=== PATIENT | male | born 1985 | race Caucasian/White ===

== ENCOUNTER 2025-03-15 14:19 | Emergency (ER) | payer MEDICAID, SELFPAY ==
--- NOTE | 2025-03-15 14:20 | W.ED.ABDPA2 ---
HPI - Abdominal Pain General: Chief Complaint: Abdominal Pain Stated Complaint: AB PAIN History of Present Illness: 39-year-old male presents emergency room via EMS with sudden onset of sharp right flank pain radiating down to the groin that comes and goes in waves it is constant but has waves of even more sharp severe pain. No previous abdominal surgeries no known history of nephrolithiasis. He had otherwise been fine up till the point it began 45 minutes ago he has been very nauseous no vomiting no fevers sweats or chills with this no diarrhea. Associated Symptoms: Denies chills, dysuria and fever(s) Related Data Home Medications ?Medication ?Instructions ?Recorded ?Confirmed ibuprofen 800 mg tablet 800 mg PO TID 03/15/25 03/15/25 propranolol 40 mg tablet 40 mg PO DAILY 03/15/25 03/15/25 tizanidine 4 mg tablet 4 mg PO Q8H 03/15/25 03/15/25 Previous Rx's ?Medication ?Instructions ?Recorded hydrocodone 5 mg-acetaminophen 325 1 tab PO Q6H PRN pain #20 tabs 03/15/25 mg tablet promethazine 25 mg tablet 25 mg PO Q6H PRN nausea and 03/15/25 vomiting #20 tabs tamsulosin 0.4 mg capsule 0.4 mg PO DAILY #10 caps 03/15/25 Allergies Allergy/AdvReac Type Severity Reaction Status Date / Time No Known Allergies Allergy Unverified 09/15/19 10:07 Review of Systems Const: Denies: fever(s) or chills Card: Denies: chest pain Resp: Denies: dyspnea GI: Denies: abdominal pain : Reports: flank pain; Denies: dysuria, urinary frequency or urinary urgency Musc: Denies: neck pain or back pain Skin/Breast: Denies: rash Physical Exam Const: GENERAL APPEARANCE: cooperative ORIENTATION/CONSCIOUSNESS: Yes awake, Yes oriented to person, Yes oriented to place and Yes oriented to time HENMT: COMMON NORMALS: normocephalic, atraumatic and hearing grossly normal bilaterally HEAD & SCALP: normocephalic and atraumatic Resp: COMMON NORMALS: normal respiratory effort, No retractions, No use of accessory muscles and clear to auscultation bilaterally AUSCULTATION: clear to auscultation bilaterally Cardio: COMMON NORMALS: regular rate, regular rhythm and No murmurs present (Cardio) RATE: regular rate RHYTHM: regular rhythm GI: COMMON NORMALS: Soft to palpation and No hepatosplenomegaly present AUSCULTATION: Yes normoactive bowel sounds PALPATION: Yes Soft to palpation, No Tenderness to palpation present (GI), No Guarding due to palpation present (GI) and Yes No hepatosplenomegaly present : OTHER: Right CVA pain Extremity: COMMON NORMALS: normal to inspection, capillary refill normal, no clubbing, cyanosis or edema, no calf tenderness and no pedal edema Neuro: SENSORIUM/ORIENTATION: Yes oriented to person, Yes oriented to place and Yes oriented to time Skin: COMMON NORMALS: no rashes or lesions noted GENERAL SKIN EXAM: no rashes or lesions noted Course Vital Signs: Vital signs: Vital Signs Temperature 98.6 F 03/15/25 14:22 Pulse Rate 76 03/15/25 17:10 Respiratory Rate 22 H 03/15/25 15:39 Blood Pressure 169/103 03/15/25 17:10 Pulse Oximetry 96 03/15/25 17:10 Oxygen Delivery Me thod Room Air 03/15/25 14:22 MDM - Abdominal Pain Medical Decision Making 2 mm nonobstructing stone at the right UVJ. Pain well-controlled at this time will discharge patient home with hydrocodone Flomax and promethazine. Follow-up with urology strain urine for stone. Medical Records I reviewed the patient's medical records. Lab Data I reviewed the patient's lab results. 03/15/25 14:31 03/15/25 14:31 Labs/Radiology: Radiology Impressions Abdomen/Pelvis CT 03/15/25 14:31 IMPRESSION: 1. A 2 mm obstructing stone at the right ureterovesical junction with mild right hydroureter. No hydronephrosis. 2. Hepatic steatosis. COMMENTS: Consistent with the [employer]'s Incidental Findings Committee white paper (J Am Louis Radiol 2018): Any incidental renal lesion less than 1 cm or classified as too small to characterize, or any incidental cystic renal lesion characterized as simple-appearing, is likely benign. No follow-up imaging is recommended for these lesions per consensus recommendations based on imaging criteria. Laboratory Results WBC 10.43 10^3/uL (3.29-11.43) 03/15/25 14:31 RBC 5.10 10^6/uL (3.85-5.65) 03/15/25 14:31 Hgb 15.60 g/dL (11.27-16.99) 03/15/25 14:31 Hct 44.0 % (37-53) 03/15/25 14: MCV 86.3 fl (82-101) 03/15/25 14:31 MCH 30.6 pg (27-33) 03/15/25 14: MCHC 35.5 g/dL (30-55) 03/15/25 14:31 RDW 13.2 % (12.1-15.1) 03/15/25 14:31 Plt Count 346 10^3/cmm (157-399) 03/15/25 14: MPV 9.6 fL (7.4-10.4) 03/15/25 14:31 Neut % (Auto) 64.5 % 03/15/25 14: Lymph % (Auto) 24.6 % 03/15/25 14: Mckean % (Auto) 8.5 % 03/15/25 14: Eos % (Auto) 1.3 % 03/15/25 14:31 Baso % (Auto) 0.2 % 03/15/25 14: Neut # (Auto) 6.72 10^3/uL (1.8-7.7) 03/15/25 14: Lymph # (Auto) 2.6 10^3/uL (0.8-4.8) 03/15/25 14:31 Mckean # (Auto) 0.9 10^3/uL (0.2-0.9) 03/15/25 14: Eos # (Auto) 0.1 10^3/uL (0.0-0.8) 03/15/25 14: Baso # (Auto) 0.0 10^3/uL (0.0-0.1) 03/15/25 14: Nucleated RBC % (auto) 0 % 03/15/25 14: Nucleated RBCs # 0.0 /100WBC 03/15/25 14:31 Sodium 137 mmol/L (136-145) 03/15/25 14:31 Potassium 4.3 mmol/L (3.5-5.1) 03/15/25 14: Chloride 103 mmol/L (98-107) 03/15/25 14:31 Carbon Dioxide 21 mmol/L (22-29) L 03/15/25 14:31 Anion Gap 17.3 (5-19) 03/15/25 14:31 BUN 12 mg/dL (6-20) 03/15/25 14:31 Creatinine 1.1 mg/dL (0.7-1.2) 03/15/25 14:31 GFR Calculation 74.9 mL/min (90-130) L 03/15/25 14:31 Glucose 110 mg/dL (65-115) 03/15/25 14:31 Calculated Osmolality 284 mOsm/kg (285-295) L 03/15/25 14:31 Calcium 9.5 mg/dL (8.5-10.5) 03/15/25 14: Total Bilirubin 0.5 mg/dL (0.15-1.2) 03/15/25 14:31 AST 16 U/L (0-40) 03/15/25 14:31 ALT 30 U/L (0-41) 03/15/25 14:31 Alkaline Phosphatase 126 U/L (40-130) 03/15/25 14:31 Total Protein 7.6 g/dL (6.6-8.7) 03/15/25 14:31 Albumin 4.3 g/dL (3.5-5.2) 03/15/25 14:31 Globulin 3.3 g/dL (1.3-4.6) 03/15/25 14:31 Lipase 41 U/L (13-60) 03/15/25 14:31 Urine Color Yellow (Yellow) 03/15/25 16:05 Urine Appearance Clear (CLEAR) 03/15/25 16:05 Urine pH 6.5 (5-7) 03/15/25 16:05 Ur Specific [place] 1.036 (1.005-1.030) H 03/15/25 16:05 Urine Protein 1+ (Negative) A 03/15/25 16:05 Urine Glucose (UA) Negative (Normal) 03/15/25 16:05 Urine Ketones Trace (Negative) 03/15/25 16:05 Urine Blood 1+ (Negative) A 03/15/25 16:05 Urine Nitrate Negative (Negative) 03/15/25 16:05 Urine Bilirubin Negative (Negative) 03/15/25 16:05 Urine Urobilinogen 1.0 mg/dL (Negative) 03/15/25 16:05 Ur Leukocyte Esterase Negative (Negative) 03/15/25 16:05 Urine RBC 21-50 /hpf (0-2) H 03/15/25 16:05 Urine WBC 0-5 /hpf (0-5) 03/15/25 16:05 Ur Squamous Epith Cells 0-5 /hpf (0-5) 03/15/25 16:05 Amorphous Sediment Not Reportable 03/15/25 16:05 Urine Bacteria None seen /hpf (NONE) 03/15/25 16:05 Hyaline Casts 0.40 /lpf 03/15/25 16:05 All radiology interpretation(s) finalized by discharge Discharge Plan Discharge Patient Disposition: Home Clinical Impression: Calculus of kidney Condition: Stable Prescriptions: New hydrocodone-acetaminophen 5-325 mg tablet 1 tab PO Q6H PRN (Reason: pain) Qty: 20 0RF promethazine 25 mg tablet 25 mg PO Q6H PRN (Reason: nausea and vomiting) Qty: 20 0RF tamsulosin 0.4 mg capsule 0.4 mg PO DAILY Qty: 10 0RF No Action ibuprofen 800 mg tablet 800 mg PO TID tizanidine 4 mg tablet 4 mg PO Q8H propranolol 40 mg tablet 40 mg PO DAILY Discharge Orders: Discharge ED (Routine); Ordered 03/15/25 Ordered By: Uche Yao Patient Instructions: Kidney Stones (ED), How to Strain Your Urine (ED), Opioid Safety, Pain Management, Patient Portal & Tariq Instructions Activity Restrictions/Additional Instructions: Thank you for choosing [facility] for your healthcare needs today. It is very important that you follow up as instructed or that you return to the Emergency Department should you have concerns or if your condition changes or worsens in any way. Emergency department visits are focused on emergent conditions, in some cases you may require further evaluation on an outpatient basis. You were seen in the emergency room for right-sided flank pain. On examination your white count is normal there is significant amount of blood in your urine CT shows a kidney stone. These will usually pass spontaneously. We did give you pain medications nausea medications and medication to help the stone pass sooner. You should strain your urine to collect a stone. Case management will make arrangements for you to follow-up with the urologist. If your pain is uncontrolled return to the emergency room (Please note that included in your discharge packet is information concerning opioid safety and pain management. This information is given to all patients were discharged from the ER regardless of their discharge diagnosis or the medicines they usually take or are prescribed.) Print Language: Vietnamese Coding Level of Care Code ED Architectural Engineering Teacher for Chikis Byrne
[2025-03-15 14:22] VITALS: BP 117/110; PULSE 75; RESP 16; TEMP 37; O2SAT 96; BMI 49.9
--- NOTE | 2025-03-15 14:31 | CTR_ITS ---
PROCEDURE INFORMATION: Exam: CT Abdomen And Pelvis Without Contrast Exam date and time: 03/15/2025 2:46 PM Age: 39 years old Clinical indication: Abdominal pain; Flank; Right; Additional info: Flank pain TECHNIQUE: Imaging protocol: Computed tomography of the abdomen and pelvis without contrast. Radiation optimization: All CT scans at this facility use at least one of these dose optimization techniques: automated exposure control; mA and/or kV adjustment per patient size (includes targeted exams where dose is matched to clinical indication); or iterative reconstruction. COMPARISON: No relevant prior studies available. RADIATION DOSE METRICS: Total DLP (mGy-cm): 1344.233 FINDINGS: Limitations: Evaluation of solid organs, viscera, and vasculature is limited without intravenous contrast. Lungs: Lung bases are clear. Liver: Diffusely hypoattenuating liver, compatible with steatosis. No focal lesion detected. Gallbladder and biliary ducts: No radiodense gallstones. No biliary ductal dilation. Pancreas: Normal. Spleen: Several scattered punctate benign calcified granulomas. Adrenal glands: Normal. Kidneys and ureters: No hydronephrosis. A right renal simple cyst. A 2 mm obstructing stone at the right ureterovesical junction with mild right hydroureter. Stomach and bowel: No dilated or inflamed bowel. A few scattered colonic diverticula. Appendix: Normal. Intraperitoneal space: No free air. No free fluid. Vasculature: Field Lymph nodes: No lymphadenopathy. Urinary bladder: Unremarkable as visualized. Reproductive: Unremarkable as visualized. Bones/joints: No acute osseous abnormality. An 8 mm benign bone island in the right femoral head. Soft tissues: Unremarkable. CT/CT kidney stone [id number] IMPRESSION: 1. A 2 mm obstructing stone at the right ureterovesical junction with mild right hydroureter. No hydronephrosis. 2. Hepatic steatosis. COMMENTS: Consistent with the [employer]'s Incidental Findings Committee white paper (J Am Louis Radiol 2018): Any incidental renal lesion less than 1 cm or classified as too small to characterize, or any incidental cystic renal lesion characterized as simple-appearing, is likely benign. No follow-up imaging is recommended for these lesions per consensus recommendations based on imaging criteria.
[2025-03-15 14:45] LABS: Hematocrit 44.0 % (37-53); Hemoglobin 15.60 g/dL (11.27-16.99); Mean Corpuscular HGB Conc 35.5 g/dL (30-55); Mean Corpuscular Hemoglobin 30.6 pg (27-33); Mean Corpuscular Volume 86.3 fl (82-101); Nucleated Red Blood Cells % 0 %; Platelet Count 346 10^3/cmm (157-399); Red Blood Count 5.10 10^6/uL (3.85-5.65); White Blood Count 10.43 10^3/uL (3.29-11.43)
[2025-03-15 15:05] LABS: Alanine Aminotransferase 30 U/L (0-41); Albumin Level 4.3 g/dL (3.5-5.2); Alkaline Phosphatase 126 U/L (40-130); Anion Gap 17.3 (5-19); Aspartate Amino Transferase 16 U/L (0-40); Blood Urea Nitrogen 12 mg/dL (6-20); Calcium 9.5 mg/dL (8.5-10.5); Carbon Dioxide 21 mmol/L (22-29); Chloride 103 mmol/L (98-107); Creatinine Clr Calc Pharmacy 117.6235; Globulin 3.3 g/dL (1.3-4.6); Glucose 110 mg/dL (65-115); Lipase 41 U/L (13-60); Osmolality Calculated 284 mOsm/kg (285-295); Potassium 4.3 mmol/L (3.5-5.1); Sodium 137 mmol/L (136-145); Total Protein 7.6 g/dL (6.6-8.7)
[2025-03-15 15:26] VITALS: BP 169/124; PULSE 69; O2SAT 93
[2025-03-15 15:39] VITALS: RESP 22; O2SAT 96
[2025-03-15] MEDS: morphine 4 mg/mL SDV 1 mL IVP (15:39)
[2025-03-15 16:00] VITALS: BP 177/109; PULSE 74; O2SAT 95
--- OUTSIDE RECORDS SUMMARY | 2025-03-15 16:14 | XMS_ITS | Clinical Summary ---
Author Organization [facility] Address [address] [address] Phone Care Team Providers Care Whipper Beater Name Role Phone Torres Cleveland MD Primary Care Provider [phone] Allergies No known active allergies Medications ibuprofen (MOTRIN) 200 mg tablet Take 800 mg by mouth every 6 hours as needed for Pain, Mild. Active acetaminophen (TYLENOL) 500 mg tablet Take 1,500 mg by mouth every 6 hours as needed . Active tiZANidine (ZANAFLEX) 2 mg TabletIndicatio ns:Chronic right shoulder pain,Chronic pain of right knee TAKE 1 TABLET BY MOUTH EVERY 8 HOURS NEEDED FOR SPASM 90 Tablet 11/26/2020 Active montelukast (SINGULAIR) 10 mg tabletIndicatio ns:Environmenta l allergies TAKE 1 TABLET(10 MG) BY MOUTH DAILY AT BEDTIME 90 Tablet 1 11/26/2020 Active Active Problems No known active problems Immunizations Immunization Administration Dates Next Due (ADACEL/BOOSTRIX)(10 YR UP) TDAP VACCINE, 0.5ML, IM 07/26/2017 Social History Tobacco Use Types Packs/Day Years Used Date Smoking Tobacco: Never Smokeless Tobacco: Never Alcohol Use Standard Drinks/Week Comments Yes 0 (1 standard drink = 0.6 oz pur e alcohol) occasional Sex and Gender Information Value Date Recorded Sex Assigned at Not on file 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 Gender Identity Not on file Sexual Orientation Not on file Last Filed Vital Signs Vital Sign Reading Time Taken Comments Blood Pressure 130/90 11/26/2020 11:45 AM CDT Pulse 88 11/26/2020 11:45 AM CDT Temperature 36.5 C (97.7 F) 11/26/2020 11:45 AM CDT Respiratory Rate 16 11/26/2020 11:45 AM CDT Oxygen Saturation 96% 11/26/2020 11:45 AM CDT Inhaled Oxygen Concentration - - Weight 136.1 kg (300 lb) 11/26/2020 11:45 AM CDT Height 165.1 cm (5' 5 ) 11/26/2020 11:45 AM CDT Body Mass Index 49.92 11/26/2020 11:45 AM CDT Plan of Treatment Health Maintenance Due Date Last Done Comments HEPATITIS B VACCINES (1 of 3 - 19+ 3-dose series) 05/22 HPV VACCINES (1 - 3-dose SCDM series) 2013 INFLUENZA VACCINE (#1) 2025 11/26/2020 DTAP/TDAP/TD VACCINES (2 - Td or Tdap) 07/26/2027 Care Teams Whipper Beater Relationship Specialty Start Date End Date Torres Cleveland MD [address] [id number] PCP - General Family Practice 08/30/18
--- OUTSIDE RECORDS SUMMARY | 2025-03-15 16:14 | XMS_ITS | Clinical Summary ---
Author Organization [facility] Address [address] [address] Phone Care Team Providers Care Wrapping Clerk Name Role Phone Claire Shirley Primary Care Provider [phone] Allergies Active Allergy Reactions Criticality Noted Date Comments Topiramate Other (See Comments) 02/18/2023 Causes worsening mood and agitation Medications acetaminophen (TYLENOL) 500 mg tablet Take 1,500 mg by mouth every 6 hours as needed . 07/01/2017 Active SUMAtriptan (Imitrex) 50 mg tabletIndication s:Migraine without aura and without status migrainosus, not intractable Take 1 Tablet (50 mg) by mouth every 2 hours as needed for Headaches. may repeat in 2 hours; max dose 200mg in 24 hours 30 Tablet 5 03/24/2023 Active montelukast (SINGULAIR) 10 mg tabletIndication s:Environmental allergies Take 1 Tablet (10 mg) by mouth daily. 90 Tablet 3 03/24/2023 Active amitriptyline (ELAVIL) 50 mg tabletIndication s:Chronic right shoulder pain,Chronic pain of right knee,Situational mixed anxiety and depressive disorder,Migrain e without aura and without status migrainosus, not intractable Take 1 Tablet (50 mg) by mouth daily at bedtime. 90 Tablet 3 10/27/2023 Active propranoloL (INDERAL) 40 mg tabletIndication s:Migraine without aura and without status migrainosus, not intractable Take 1 Tablet (40 mg) by mouth daily. 90 Tablet 3 10/27/2023 Active meloxicam (Mobic) 15 mg tabletIndication s:Chronic right shoulder pain,Chronic pain of right knee Take 1 Tablet (15 mg) by mouth daily. 30 Tablet 11 10/27/2023 Active tiZANidine (ZANAFLEX) 4 mg Tablet Take 1 Tablet (4 mg) by mouth every 8 hours. 270 Tablet 3 02/17/2025 1:51 PM CDT 02/08/2025 Active Active Problems Problem Noted Date Diagnosed Date Situational mixed anxiety and depressive disorde r 08/27/2023 Migraine without aura and wi thout status migrainosus, not intractable 03/24/2023 Chronic tension-type headache, not intractable 0 11/09/2022 Chronic pain of right knee 11/09/2022 Chronic right shoulder pain 11/09/2022 Environmental allergies 11/09/2022 Resolved Problems Problem Noted Date Diagnosed Date Resolved Date Morbid obesity with body mas s index of 40.0-49.9 11/07/2021 10/27/2023 Encounters Date Type Department Care Team Description 03/07/2025 External Device Data [facility] ABSTRACTION Provider, Abstract 02/20/2025 External Device Data [facility] ABSTRACTION Provider, Abstract from Last 3 Months Immunizations Immunization Administration Dates Next Due (ADACEL/BOOSTRIX)(10 YR UP) TDAP VACCINE, 0.5ML, IM 07/26/2017 Social History Tobacco Use Types Packs/Day Years Used Date Smoking Tobacco: Never Passive Smoke Exposure: Never Smokeless Tobacco: Never Tobacco Cessation:Counseling Given: No Alcohol Use Standard Drinks/Week Comments Not Currently 0 (1 standard drink = 0.6 oz pur e alcohol) Sex and Gender Information Value Date Recorded Sex Assigned at Not on file 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 Gender Identity Not on file Sexual Orientation Not on file Last Filed Vital Signs Vital Sign Reading Time Taken Comments Blood Pressure 138/90 10/27/2023 1:41 PM CDT Pulse 82 10/27/2023 1:15 PM CDT Temperature 36.6 C (97.9 F) 10/27/2023 1:15 PM CDT Respiratory Rate 16 08/17/2023 3:34 PM BRICK OFFBEARER Oxygen Saturation 98% 10/27/2023 1:15 PM CDT Inhaled Oxygen Concentration - - Weight 127.9 kg (282 lb) 10/27/2023 1:15 PM CDT Height 165.1 cm (5' 5 ) 10/27/2023 1:15 PM CDT Body Mass Index 46.93 10/27/2023 1:15 PM CDT Plan of Treatment Health Maintenance Due Date Last Done Comments HEPATITIS B VACCINES (1 of 3 - 19+ 3-dose series) 2005 HPV VACCINES (1 - 3-dose SCDM series) 2013 INFLUENZA VACCINE (#1) 2025 11/07/2021, 2020 DTAP/TDAP/TD VACCINES (2 - Td or Tdap) 07/26/2027 Care Teams Wrapping Clerk Relationship Specialty Start Date End Date Claire Shirley DO [address] [place] [address] PCP - General Family Practice 05/04/23
[2025-03-15 16:30] VITALS: BP 181/122; PULSE 70; O2SAT 96
[2025-03-15 16:36] LABS: Glucose Urine UA Negative (Normal); Nitrate Urine Negative (Negative)
[2025-03-15 16:38] LABS: Add Urine Microscopic? YES
[2025-03-15 16:39] LABS: Specific Gravity, Urine 1.036 (1.005-1.030)
[2025-03-15] MEDS: HYDROmorphone 0.5 MG/0.5 ML INJ IVP (17:05)
[2025-03-15 17:10] VITALS: BP 169/103; PULSE 76; O2SAT 96
--- NOTE | 2025-03-16 08:36 | DCPLANNER ---
faxed urology referral to [facility]. images pushed.
== END 2025-03-15 17:10 | disposition home or self-care (01) ==
PROVIDERS: Emergency Provider Family Medicine
DX: N20.0 Calculus of kidney (principal)
CPT/HCPCS: 36415; 74176; 80053; 81001; 83690; 85025; 96374; 96375; 99285; J1171; J1885; J2270; J7030